=== PATIENT | male | born 1975 | race Two or more races ===

== ENCOUNTER 2020-02-18 11:15 | Emergency (ER) | payer OTHER ==
[~2020-02-18] VITALS: Ht 182.9 cm; Wt 99.8 kg
[2020-02-18] MEDS ORDERED: CRESTOR5 MG (11:40)
[2020-02-18] MEDS ORDERED: COZAAR50 MG (11:40)
[2020-02-18] MEDS ORDERED: JULUCA 50-25 M1 EACH (11:40)
[2020-02-18] MEDS ORDERED: NORFLEX100MG PO (13:20)
[2020-02-18] MEDS ORDERED: MEDROLPACK PO (13:20)
[2020-02-18] MEDS ORDERED: KETO10TA2 PO (13:20)
== END 2020-02-18 13:25 | disposition home or self-care (01) ==
LOC: ER 11:15
DX: M54.5 Low back pain (principal)